=== PATIENT | male | born 1980 | race Two or more races ===

== ENCOUNTER 2018-01-15 14:21 | Emergency (ER) | payer SELFPAY ==
[~2018-01-15] VITALS: Ht 175.3 cm; Wt 75.0 kg
[2018-01-15 14:30] VITALS: BP 129/83
== END 2018-01-15 21:30 | disposition left against medical advice (07) ==
LOC: ER 14:21
DX: Z53.21 Procedure and treatment not carried out due to patient leaving prior to being seen by health care provider (principal)

== ENCOUNTER 2018-01-17 10:33 | Emergency (ER) | payer MEDICAID ==
[~2018-01-17] VITALS: Ht 175.3 cm; Wt 75.0 kg
[2018-01-17 10:42] VITALS: BP 149/110
== END 2018-01-17 15:09 | disposition left against medical advice (07) ==
LOC: ER 10:53
DX: Z53.21 Procedure and treatment not carried out due to patient leaving prior to being seen by health care provider (principal)

== ENCOUNTER 2018-02-28 13:21 | Emergency (ER) | payer MEDICAID ==
[~2018-02-28] VITALS: Ht 175.3 cm; Wt 75.0 kg
[2018-02-28 13:25] VITALS: BP 125/92
== END 2018-02-28 15:57 | disposition home or self-care (01) ==
LOC: ER 14:28
DX: B86 Scabies (principal); L29.9 Pruritus, unspecified
CPT/HCPCS: 99283

== ENCOUNTER 2018-10-05 05:57 | Emergency (ER) | payer MEDICAID ==
[~2018-10-05] VITALS: Ht 172.7 cm; Wt 75.0 kg
[2018-10-05] MEDS ORDERED: BACITRACIN ZINC OINT UDPKT TOP ONE (06:45)
[2018-10-05] MEDS ORDERED: TETANUS, DIPHTHERIA, PERTUSSIS VAC/PF 0.5ML (>7YR OLD) IM ONE (06:45)
[2018-10-05 07:07] VITALS: BP 118/83
== END 2018-10-05 07:07 | disposition home or self-care (01) ==
LOC: ER 05:57
DX: S09.8XXA Other specified injuries of head, initial encounter (principal); S60.511A Abrasion of right hand, initial encounter; S80.212A Abrasion, left knee, initial encounter; B86 Scabies; F17.200 Nicotine dependence, unspecified, uncomplicated; Y08.89XA Assault by other specified means, initial encounter; Y93.89 Activity, other specified; Y92.89 Other specified places as the place of occurrence of the external cause; Y99.8 Other external cause status; Z93.0 Tracheostomy status
CPT/HCPCS: 90471; 90715; 99283

== ENCOUNTER 2019-05-29 02:39 | Emergency (ER) | payer MEDICAID ==
[~2019-05-29] VITALS: Ht 175.3 cm; Wt 75.0 kg
[2019-05-29 02:48] VITALS: BP 137/100
[2019-05-29] MEDS ORDERED: PERMETHRIN 5% CREAM 60GM TOP ONE (03:00)
[2019-05-29] MEDS ORDERED: DIPHENHYDRAMINE 25MG CAPSULE PO ONE (03:00)
== END 2019-05-29 03:44 | disposition home or self-care (01) ==
LOC: ER 03:17
DX: B86 Scabies (principal); Z93.0 Tracheostomy status
CPT/HCPCS: 99282; Q0163

== ENCOUNTER 2020-05-13 13:50 | Emergency (ER) | payer MEDICAID ==
[~2020-05-13] VITALS: Ht 180.3 cm; Wt 74.0 kg
[2020-05-13 14:04] VITALS: BP 120/76
== END 2020-05-13 17:14 | disposition left against medical advice (07) ==
LOC: ER 13:50
DX: Z53.21 Procedure and treatment not carried out due to patient leaving prior to being seen by health care provider (principal); Z93.0 Tracheostomy status
CPT/HCPCS: 99281

== ENCOUNTER 2021-07-13 08:01 | Emergency (ER) | payer MEDICAID ==
[~2021-07-13] VITALS: Ht 177.8 cm; Wt 68.0 kg
[2021-07-13] MEDS ORDERED: AZITHROMYCIN 500 MG TABLET PO STA (08:22)
[2021-07-13] MEDS ORDERED: TETRACAINE 0.5% OPHTH DROPS 4ML BOTHEYE ONE (08:30)
[2021-07-13] MEDS ORDERED: CEFTRIAXONE 1 G PREMIX 50 ML IV ONE (08:30)
[2021-07-13] MEDS ORDERED: FLUORESCEIN SODIUM 1MG/STRIP BOTHEYE ONE (08:30)
[2021-07-13] MEDS ORDERED: SODIUM CHLORIDE 0.9% 1,000 ML IV ONE (08:30)
[2021-07-13] MEDS ORDERED: ERYTHROMYCIN BASE 0.5% OPHTH OINT 3.5GM BOTHEYE ONE (08:30)
[2021-07-13 08:44] LABS: HEMATOCRIT. 35.2 % (42.0-52.0); HEMOGLOBIN. 11.8 g/dL (14.0-18.0); MEAN CORPUSCULAR HEMOGLOBIN 29.6 pg (28.0-32.0); MEAN CORPUSCULAR VOLUME 88.4 fL (80.0-94.0); MEAN PLATELET VOLUME 7.8 fl (7.4-10.4); PLATELET 260 x1000/uL (130-400); RED BLOOD CELL COUNT 3.98 mill/uL (4.7-6.1); RED CELL DISTRIBUTION WIDTH 14.1 % (11.6-14.6)
[2021-07-13 08:52] LABS: CHLORIDE 102 mEq/L (98-107)
[2021-07-13 09:21] LABS: PLATELET ESTIMATE NORMAL
[2021-07-13] MEDS ORDERED: ACYCLOVIR INJ 750 MG in DEXT 5% WATER 100 ML IV STA (09:34)
[2021-07-13] MEDS ORDERED: CIPROFLOXACIN 0.3% OPHTH SOLN 2.5ML BOTHEYE STA (11:16)
[2021-07-13] MEDS ORDERED: POLYMYXIN B SULFATE/TMP 10ML BOTTLE BOTHEYE STA (17:00)
[2021-07-13] MEDS: CIPROFLOXACIN 0.3% OPHTH SOLN 2.5ML BOTHEYE SCH (18:00)
[2021-07-14] MEDS: CIPROFLOXACIN 0.3% OPHTH SOLN 2.5ML BOTHEYE SCH ×11 (00:04→23:34)
[2021-07-15] MEDS: CIPROFLOXACIN 0.3% OPHTH SOLN 2.5ML BOTHEYE SCH ×10 (03:44→21:48)
[2021-07-15] MEDS ORDERED: CEFTRIAXONE 1GM PREMIX 50ML IV SCH (20:00)
[2021-07-15] MEDS ORDERED: ACYCLOVIR INJ 750 MG in DEXT 5% WATER 100 ML IV SCH (22:00)
[2021-07-16] MEDS: CIPROFLOXACIN 0.3% OPHTH SOLN 2.5ML BOTHEYE SCH ×2 (00:11→02:19)
[2021-07-16 03:02] VITALS: BP 130/76
== END 2021-07-16 03:10 | disposition home or self-care (01) ==
LOC: ER 08:01
DX: H57.89 Other specified disorders of eye and adnexa (principal); H16.001 Unspecified corneal ulcer, right eye; Z20.822 Contact with and (suspected) exposure to COVID-19
CPT/HCPCS: 36415; 80053; 85025; 87426; 96365; 96375; 99285; C9803; J0133; J0696; J7030; J7060; 87252

== ENCOUNTER 2021-09-02 12:06 | Emergency (ER) | payer MEDICAID ==
[~2021-09-02] VITALS: Ht 172.7 cm; Wt 65.0 kg
[2021-09-02] MEDS ORDERED: TETRACAINE 0.5% OPHTH DROPS 4ML BOTHEYE ONE ×2 (13:30→16:45)
[2021-09-02] MEDS ORDERED: FLUORESCEIN SODIUM 1MG/STRIP BOTHEYE ONE (13:30)
[2021-09-02] MEDS ORDERED: SODIUM CHLORIDE 0.9% 1,000 ML IV ONE (13:30)
[2021-09-02 15:31] VITALS: BP 128/79
[2021-09-02] MEDS ORDERED: CIPROFLOXACIN 0.3% OPHTH SOLN 2.5ML BOTHEYE ONE (15:45)
== END 2021-09-02 19:03 | disposition home or self-care (01) ==
LOC: ER 12:06
DX: H17.9 Unspecified corneal scar and opacity (principal); Z98.890 Other specified postprocedural states
CPT/HCPCS: 96360; 96361; 99283; J7030